=== PATIENT | male | born 1945 ===

== ENCOUNTER 2023-10-21 05:40 | Day surgery (SDC) | payer OTHER ==
[2023-10-21] MEDS ORDERED: CEFAZOLIN SODIUM 1,000 MG VIAL ONE (10:10)
[2023-10-21] MEDS ORDERED: BUPIVACAINE HCL/MPF 0.5% 30ML VIAL ONE (10:47)
[2023-10-21] MEDS ORDERED: BUPIVACAINE HCL/PF 0.25% 30ML VIAL InF ONE (11:30)
[2023-10-21] MEDS ORDERED: CEFAZOLIN SODIUM 1,000 MG VIAL IV ONE (11:30)
== END 2023-10-21 14:40 | disposition home or self-care (01) ==
LOC: CIR.AMB 05:40
PROVIDERS: ATTEND Surgery Surgery of the Hand
DX: M65.842 Other synovitis and tenosynovitis, left hand (principal); I10 Essential (primary) hypertension